=== PATIENT | male | born 1985 | race Caucasian/White ===

== ENCOUNTER 2024-08-03 21:18 | Emergency (ER) | payer OTHER, MEDICAID, SELFPAY ==
[2024-08-03 21:20] VITALS: BP 129/58; PULSE 85; RESP 20; O2SAT 100
--- NOTE | 2024-08-03 21:39 | ED.GENADUL_ITS ---
Discharge Plan Disposition Patient Disposition: Home Condition: Stable Discharge Details Clinical Impression: Laceration of right wrist Primary Care Provider: None,None ED Provider: Mady Mixon Home Meds and New Rx's Prescriptions: No Action No Known Home Meds Discharge Instructions Instructions: Taking care of cuts, scrapes, and puncture wounds, Laceration Repair With Glue ED Additional Instructions: Keep clean and dry. The glue will start to slough off in 4-6 days. Return for any signs of infection such as red streaks, pus, drainage or concerns. Follow up with primary care provider in 3-5 days. Return to ED sooner if any worsening or concerns. Please take Tylenol or Ibuprofen with food every 4-6 hours as needed for pain and swelling. Referrals: Primary Care Provider [Outside] - 5 days HPI General Mode of arrival: EMS . Date/Time Provider Initiated Documentation: 08/03/24 21:29 . Information obtained by: patient, EMS and old records reviewed . HPI Narrative: 39-year-old male presents to the ER with a chief complaint of laceration to the anterior right wrist. He accidentally punctured his right wrist while trying to get brownies out of [employer]. Knife slipped hitting his wrist. Bleeding is controlled upon arrival. He has full range of motion with flexion and extension of his wrist. It is approximately 1 cm in length and irregular. Distal CMS intact. He is unknown when his last tetanus. Related Data Home Medications ?Medication ?Instructions ?Recorded ?Confirmed Unknown [No Known Home Meds] 03/08/15 08/03/24 Allergies Allergy/AdvReac Type Severity Reaction Status Date / Time No Known Allergies Allergy Unverified 08/03/24 21:25 General Stated Complaint: Laceration CHIKA: 4 Review of Systems Integumentary/Breasts Skin/Breast: Reports as per HPI and Reports wounds Exam Extrem Right upper extremity: wrist Details: laceration wrist volar-medial Details: irregular, involving subcutaneous tissue, with motor nerve function intact, with sensation intact, with flexor tendon function intact and with extensor tendon function intact; no foreign body present, radial pulse present and ulnar pulse present Hand/finger images: 2 1. Approximately 1 cm irregular laceration, bleeding controlled. Course Vital Signs Vital signs: Vital Signs Pulse 85 08/03/24 21:20 Respiratory Rate 20 08/03/24 21:20 Blood Pressure 129/58 L 08/03/24 21:20 Pulse Oximetry 100 08/03/24 21:20 Pulse 85 08/03/24 21:20 Respiratory Rate 20 08/03/24 21:20 Respiratory Effort Normal 08/03/24 21:27 Blood Pressure 129/58 L 08/03/24 21:20 Pulse Oximetry 100 08/03/24 21:20 Oxygen Delivery Method Room Air 08/03/24 21:20 Oxygen Flow Rate 0 08/03/24 21:20 Pain Level 7 08/03/24 21:20 Medical Decision Making 39-year-old male presents to the ER with a chief complaint of laceration to the anterior right wrist. He accidentally punctured his right wrist while trying to get brownies out of [employer]. Knife slipped hitting his wrist. Bleeding is controlled upon arrival. He has full range of motion with flexion and extension of his wrist. It is approximately 1 cm in length and irregular. Distal CMS intact. He is unknown when his last tetanus. Laceration cleaned with chlorhexidine scrub, well-approximated with tissue adhesive, nonadherent dressing applied. Patient has intact range of motion distal CMS intact. Will give Tdap. Patient discharged with home care. Strict return instructions to return to be reevaluated for signs of infection. This text was generated using [employer] dictation system, please disregard any oddities of phrase or misspellings. Quality:SDOH Health Related Social Needs: 2 No Data to Display PFSH All Active Problems (Updated 08/03/24 @ 21:47 by Mady Mixon NP) Laceration of right wrist (Acute) Social History Smoking/Tobacco Use Status: Current-Occasional Tobacco Type: e-cigarettes Smoking risk assessment performed?: Yes Alcohol Intake: never Drug use: Daily Substance use type: marijuana Housing: house Do you feel safe at home: Yes Do you feel safe in your relationship?: Yes
== END 2024-08-03 22:02 | disposition home or self-care (01) ==
LOC: ER 21:53
PROVIDERS: Emergency Provider Registered Nurse Emergency
DX: S61.511A Laceration without foreign body of right wrist, initial encounter (principal); Z23 Encounter for immunization; F17.290 Nicotine dependence, other tobacco product, uncomplicated; W26.0XXA Contact with knife, initial encounter; Y93.G3 Activity, cooking and baking
CPT/HCPCS: 12001; 90471; 90715; 99283